=== PATIENT | female | born 1955 | race Hispanic/Latino ===

== ENCOUNTER 2018-09-29 07:37 | Emergency (ER) | payer OTHER ==
[~2018-09-29] VITALS: Ht 157.5 cm; Wt 69.4 kg
[2018-09-29] MEDS ORDERED: ONDANSETRON HCL INJ 2MG/ML 2ML 2 MG/ML VIAL IV STA (07:45)
[2018-09-29] MEDS ORDERED: SODIUM CHLORIDE 0.9% 1000ML 1,000 ML IV SCH (07:45)
[2018-09-29] MEDS ORDERED: MORPHINE SULFATE INJ 4 MG/ML INJ 1ML IV ONE (07:45)
[2018-09-29 08:41] LABS: BILIRUBIN,URINE NEGATIVE (NEGATIVE); CLARITY,URINE CLEAR (CLEAR); COLOR,URINE YELLOW (YELLOW); LEUKOCYTE ESTERASE ,URINE NEGATIVE (NEGATIVE); NITRITE,URINE NEGATIVE (NEGATIVE); PROTEIN,URINE DIPSTICK NEGATIVE (NEGATIVE); URINE UROBILINOGEN 0.2 mg/dL (0.2 - 1)
[2018-09-29 08:42] LABS: BASOPHILS # (AUTO) 0.1 (0.0-0.1); BASOPHILS % 0.7 % (0.0-1.0); EOSINOPHILS # (AUTO) 0.1 (0.0-0.4); EOSINOPHILS % 1.3 % (0.0-6.0); HEMATOCRIT 44.4 % (34.2-44.1); HEMOGLOBIN 14.8 g/dL (12.0-16.0); LYMPHOCYTES # (AUTO) 1.8 (1.0-3.2); LYMPHOCYTES % 26.2 % (18.0-39.1); MEAN CORPUSCULAR HEMOGLOBIN 30.6 pg (28-32); MEAN CORPUSCULAR HGB CONC 33.3 g/dL (31-35); MEAN CORPUSCULAR VOLUME 91.9 fL (81-99); MONOCYTES # (AUTO) 0.6 (0.2-0.8); MONOCYTES % 9.2 % (4.4-11.3); NEUTROPHILS # (AUTO) 4.2 (2.1-6.9); NEUTROPHILS % 62.3 % (38.7-80.0); PLATELET COUNT 326 x10e3/uL (140-360); RED BLOOD COUNT 4.83 x10e6/uL (3.6-5.1); RED CELL DISTRIBUTION WIDTH 13.3 % (11.7-14.4)
[2018-09-29 08:47] LABS: KETONES,URINE 2+ (NEGATIVE)
[2018-09-29 08:54] LABS: EPITHELIAL CELLS,URINE RARE /LPF; WBC,URINE (MAN) 0-5 /HPF (0-5)
[2018-09-29 08:56] LABS: TRANSITIONAL EPI CELLS,URINE FEW
--- NOTE | 2018-09-29 08:57 | NUR ---
Patient complains of 10/10 pain but refuses morphine becuase her pain is not that bad. Morphine wasted at this time.
[2018-09-29 08:58] LABS: ALANINE AMINOTRANSFERASE 21 IU/L (0-55); ALBUMIN 3.9 g/dL (3.5-5.0); ALBUMIN/GLOBULIN RATIO 1.1 (0.8-2.0); ALKALINE PHOSPHATASE 94 IU/L (40-150); AMYLASE 20 U/L (25-125); ANION GAP 13.2 mmol/L (8-16); BLOOD UREA NITROGEN 8 mg/dL (7-26); BUN/CREATININE RATIO 11 (6-25); CALCIUM 9.9 mg/dL (8.4-10.2); CARBON DIOXIDE 27 mmol/L (22-29); CHLORIDE 96 mmol/L (98-107); CREATININE, SERUM 0.76 mg/dL (0.57-1.11); EST GLOMERULAR FILTRATION RATE > 60 ML/MIN (60-); GLUCOSE 324 mg/dL (74-118); LIPASE 7 U/L (8-78); POTASSIUM 3.2 mmol/L (3.5-5.1); SODIUM 133 mmol/L (136-145)
[2018-09-29] MEDS ORDERED: PANTOPRAZOLE SO40 MG PO (09:35)
[2018-09-29] MEDS ORDERED: CRESTOR20 MG PO (09:35)
[2018-09-29] MEDS ORDERED: DICYCLOMINE HCL20 MG PO (09:35)
[2018-09-29] MEDS ORDERED: GLYBURIDE5 MG PO (09:35)
[2018-09-29] MEDS ORDERED: METFORMIN HCL1000 MG PO (09:36)
--- NOTE | 2018-09-29 09:42 | Diagnostic Imaging Report ---
EXAMINATION: Right upper quadrant ultrasound CLINICAL INDICATION: Right upper quadrant pain COMPARISON: None DISCUSSION: Transverse and longitudinal images of the right upper quadrant were obtained. The liver is normal in size measuring 13.6centimeters in length in the right midclavicular line and shows normal echogenicity. No focal masses are seen in the liver. There is no intrahepatic biliary dilatation. The common bile duct is normal in caliber measuring 0.3 cm. the main portal vein is normal in caliber and measures 10 mm with normal hepatopetal flow. The gallbladder is normal in appearance without stones, wall thickening or pericholecystic fluid. The sonographic Pike's sign is negative. The visualized portions of the pancreatic body and tail are unremarkable. The right kidney measures 11.1 centimeters in length. There is normal renal cortical echogenicity and no hydronephrosis, mass or shadowing calculi. Abdominal aorta is not aneurysmal. IVC is patent. No free fluid is seen. IMPRESSION: Unremarkable right upper quadrant ultrasound. Signed by: Dr. Rafael Martinez M.D. on 09/29/2018 9:39 AM
[2018-09-29] MEDS ORDERED: KETOROLAC TROMETHAMINE 30 MG/ML VIAL IV STA (10:05)
--- NOTE | 2018-09-29 11:00 | Diagnostic Imaging Report ---
EXAMINATION: CT of the abdomen and pelvis with contrast. TECHNIQUE: Spiral CT images of the abdomen and pelvis were performed from the lung bases to the lesser trochanters after the intravenous administration of 100 cc Isovue-370. Coronal and sagittal reformatted images were obtained. COMPARISON: Right upper quadrant ultrasound same day. CLINICAL HISTORY:Right upper quadrant abdominal pain. Patient reports history of prior appendectomy. DISCUSSION: ABDOMEN/PELVIS: LOWER THORAX:Unremarkable. HEPATOBILIARY: Focal fatty infiltration along the falciform ligament. 1.6 cm ill-defined focus of hypoattenuation in hepatic segment 4, adjacent to the gallbladder fossa, seen on series 2 image 24.. No intra-or extrahepatic biliary ductal dilation. The gallbladder is normal. SPLEEN: No splenomegaly. PANCREAS: No focal masses or ductal dilatation. ADRENALS: No adrenal nodules. KIDNEYS/URETERS: No hydronephrosis, stones, or solid mass lesions. PELVIC ORGANS/BLADDER: Urinary bladder is incompletely distended but otherwise unremarkable. Uterus is anteflexed and appears normal. No adnexal mass. PERITONEUM/RETROPERITONEUM: No ascites. No pneumoperitoneum. LYMPH NODES: No pelvic sidewall, retroperitoneal, or mesenteric lymphadenopathy. VESSELS: Atherosclerotic calcification of the abdominal aorta, major branch vessels, and iliac arterial systems without aneurysmal dilatation. Portal vein, splenic vein, and central superior mesenteric vein are patent. GI TRACT: The large bowel shows no evidence of distention or wall thickening. The appendix is not identified in keeping with appendectomy. The stomach is collapsed with prominence of the rugal folds. No small bowel dilatation to suggest obstruction. BONES AND SOFT TISSUE: No osseous destructive lesions. Mild degenerative disc changes and facet arthropathy of the lower lumbar spine. No soft tissue abnormalities. IMPRESSION: No acute intra-abdominal or pelvic CT abnormalities. Ill-defined hypoattenuating focus in hepatic segment 4A likely represents focal fatty infiltration. This may be confirmed by outpatient MRI of the abdomen with and without contrast (liver protocol). Atherosclerotic vascular disease. Signed by: Dr. Rafael Martinez M.D. on 09/29/2018 10:57 AM
[2018-09-29 11:18] VITALS: BP 148/76
[2018-09-29] MEDS ORDERED: IOPAMIDOL 370 MG/ML 200 ML INFUS..BTL INJ ONE (13:01)
[2018-09-29] MEDS ORDERED: SODIUM CHLORIDE 0.9% 50ML 50 ML ONE (13:01)
== END 2018-09-29 11:50 | disposition home or self-care (01) ==
LOC: ER 07:37
DX: R10.11 Right upper quadrant pain (principal); E11.9 Type 2 diabetes mellitus without complications; E78.5 Hyperlipidemia, unspecified; Z82.49 Family history of ischemic heart disease and other diseases of the circulatory system; Z79.84 Long term (current) use of oral hypoglycemic drugs; I70.90 Unspecified atherosclerosis
CPT/HCPCS: 36415; 74177; 76705; 80053; 81001; 82150; 83690; 85025; 99284; J1885; J2270; J2405; J7030; Q9967